=== PATIENT | male | born 1960 | race Caucasian/White ===

== ENCOUNTER 2022-09-24 08:50 | Outpatient (CLI) | payer BC | END 2022-09-24 08:51 | disposition home or self-care (01) | LOC: TBSIIMAG 08:50 | PROVIDERS: ATTEND Nurse Practitioner Family | DX: M48.062 Spinal stenosis, lumbar region with neurogenic claudication (principal) | CPT/HCPCS: 72110; 72148 ==

== ENCOUNTER 2023-04-15 17:00 | Outpatient (CLI) | payer BC | END 2023-04-15 17:01 | disposition home or self-care (01) | LOC: SLEEPLAB 17:00 | PROVIDERS: ATTEND Family Medicine | DX: G47.33 Obstructive sleep apnea (adult) (pediatric) (principal); E66.9 Obesity, unspecified; R06.83 Snoring; R53.83 Other fatigue; Z68.35 Body mass index [BMI] 35.0-35.9, adult | CPT/HCPCS: 95800 ==

== ENCOUNTER 2025-02-21 02:55 | Emergency (ER) | payer BC ==
[2025-02-21] MEDS ORDERED: Ketorolac Tromethamine 30 MG (1 mL) VIAL ONE (07:24)
[2025-02-21] MEDS ORDERED: Methocarbamol 500 MG TAB ONE (07:25)
== END 2025-02-21 07:32 | disposition home or self-care (01) ==
LOC: ERS 02:55
DX: S22.32XA Fracture of one rib, left side, initial encounter for closed fracture (principal); E11.9 Type 2 diabetes mellitus without complications; Z79.84 Long term (current) use of oral hypoglycemic drugs; W01.0XXA Fall on same level from slipping, tripping and stumbling without subsequent striking against object, initial encounter
CPT/HCPCS: 70450; 71250; 72125; J1885